=== PATIENT | male | born 1975 | race Caucasian/White ===

== ENCOUNTER 2019-02-18 10:31 | Emergency (ER) | payer SELFPAY ==
[~2019-02-18] VITALS: Ht 167.6 cm; Wt 77.1 kg
[2019-02-18 10:46] VITALS: Ht 167.6 cm; Wt 77.1 kg
[2019-02-18 13:07] VITALS: BP 143/85
== END 2019-02-18 13:05 | disposition home or self-care (01) ==
LOC: ED 10:31
DX: S39.012A Strain of muscle, fascia and tendon of lower back, initial encounter (principal); F17.210 Nicotine dependence, cigarettes, uncomplicated; W22.8XXA Striking against or struck by other objects, initial encounter; Y93.89 Activity, other specified; Y92.89 Other specified places as the place of occurrence of the external cause; Y99.8 Other external cause status
CPT/HCPCS: J1885